=== PATIENT | female | born 1975 | race Caucasian/White ===

== ENCOUNTER → 2017-09-08 | Day surgery (SDC) | payer BC ==
[2017-09-03 10:50] VITALS: Ht 175.3 cm; Wt 119.5 kg
[~2017-09-08] VITALS: Ht 175.3 cm; Wt 119.5 kg
[~2017-09-08] MED LIST: EFF75 PO; HYG25 PO; LEVO200T6 PO; LIDOCAINE HCL 2% 2 ML VIAL (20MG/ML) ONE; LISI20TA3 PO; PRLSR20 PO; PROPOFOL IV EMULSION 10 MG/ML 20 ML VIAL IV ONE; SODIUM CHLORIDE 0.9% 500ML 500 ML IV ONE; ZNTT/150 PO
[2017-09-08 10:49] VITALS: TEMP 37
--- NOTE | 2017-09-08 11:21 | Endo History and Physical ---
History & Physical Date of Service: Sep 08, 2017. Chief Complaint: nausea and reflux Referring Physician: Melina Morales History of Present Illness reflux and regurgitation Past Surgical History Hx Cardiac Surgery: No Hx Internal Defibrillator: No Hx Pacemaker: No Hx Abdominal Surgery: No Hx Post-Op Nausea and Vomiting: No Hx Cancer Surgery: No Hx Thoracic Surgery: No Hx Orthopedic: No Hx Urinary Tract Surgery: No Family History None Social History Smoking Status: Current Every Day Smoker Hx Substance Use: No Hx Alcohol Use: No Allergies Coded Allergies: Sulfa Drugs (Verified Adverse Reaction, Unknown, NAUSEA, GASTRIC UPSET, ) Current Medications Reported Home Medications Medications Dose Route/Sig Max Daily Dose Days Date Category Effexor (Venlafaxine Hcl) 75 Mg Tab 3 Tab PO QAM 09/03/17 Reported Prinivil (Lisinopril) 20 Mg Tab 20 Mg PO QAM 09/03/17 Reported Chlorthalidone 25 Mg Tab 1 Tab PO QAM 09/03/17 Reported Levothyroxine Sodium 200 Mcg Tab 1 Tab PO QAM 90 09/03/17 Reported Prilosec (Omeprazole) 20 Mg Capcr 20 Mg PO BID 09/03/17 Reported Zantac (Ranitidine HCl) 150 Mg Tab 150 Mg PO BID 09/03/17 Reported Vital Signs Weight (Kilograms): 119.55 Height (Feet): 5 Height (Inches): 9 Date Time Temp Pulse Resp B/P (MAP) Pulse Ox O2 Delivery O2 Flow Rate FiO2 09/08/17 10:49 37 90 20 124/81 (95) 97 Room Air Physical Exam General Appearance: WD/WN Respiratory/Chest: Auscultation: breath sounds normal Cardiovascular: Heart Auscultation: RRR Abdomen: Inspection & Palpation: soft Liver: non-tender Assessment and Plan stable for EGD
--- NOTE | 2017-09-08 11:47 | Discharge Instructions ---
Endoscopy Patient Instructions Date / Procedure(s) Performed Sep 08, 2017. EGD Allergy Information Coded Allergies: Sulfa Drugs (Verified Adverse Reaction, Unknown, NAUSEA, GASTRIC UPSET, ) Discharge Date / Findings Sep 08, 2017. mild reflux esophagitis Provider Instructions Activity Restrictions - No exercising or heavy lifting for 24 hours. - Do not drink alcohol the day of the procedure. - Do not drive a car or operate machinery until the day after the procedure. - Do not make any important decisions or sign important papers in 24 hours after the procedure. Following Day: - Return to full activity which may include returning to work/school. Diet Start your diet with liquids and light foods (jello, soup, juice, toast). Then eat your usual diet if not nauseated. Treatment For Common After Affects For mild abdominal pain, bloating, or excessive gas: - Rest - Eat lightly - Lie on right side Follow-Up Information Follow-up with Melina Morales as scheduled Anesthesia Information What You Should Know You have had a procedure that required some medicine to reduce anxiety and discomfort. This treatment is called moderate sedation. After receiving the treatment, you may be sleepy, but you will be able to breathe on your own. The effects of the treatment may last for several hours. Follow these instructions along with Activity/Diet recommendations noted above: * Do NOT do anything where dizziness or clumsiness would be dangerous. * Rest quietly at home today, then you can be up and about tomorrow. * Have a responsible person stay with you the rest of today. * You may have had an I.V. today. If so, you may take the dressing off later today. Recommendations Call your doctor if: * Trouble breathing * Continuous vomiting for more than 24 hours * Temperature above 101 degrees * Severe abdominal pain or bloating * Pain not relieved by pain medicine ordered * There is increased drainage or redness from any incision * A large amount of rectal bleeding greater than 2-3 tablespoons. (If you had a polyp/s removed or have hemorrhoids, a small amount of blood - from the rectum is to be expected.) * You have any unanswered questions or concerns. IN THE EVENT OF A SERIOUS EMERGENCY, GO TO THE NEAREST EMERGENCY ROOM Your discharge instructions were prepared by provider Enoc Santos. Patient Instructions Signature Page Linda Dumont Patient (or Guardian) Signature/Date: I have read and understand the instructions given to me by my caregivers. Caregiver/RN/Doctor Signature/Date: The above-named patient and/or guardian has received patient instructions on this date. + Original Patient Signature Page (only) stays with chart. Please make copy for patient.
--- NOTE | 2017-09-08 11:52 | GI REPORT ---
Procedure Date: 09/08/2017 11:17 AM Procedure: Upper GI endoscopy Indications: Heartburn, Regurgitation Medicines: See the Anesthesia note for documentation of the administered medications Complications: No immediate complications. Estimated Blood Loss: Estimated blood loss: none. Procedure: Pre-Anesthesia Assessment: - Prior to the procedure, a History and Physical was performed, and patient medications, allergies and sensitivities were reviewed. The patient's tolerance of previous anesthesia was reviewed. - The risks and benefits of the procedure and the sedation options and risks were discussed with the patient. All questions were answered and informed consent was obtained. - Patient identification and proposed procedure were verified prior to the procedure by the physician and the nurse. The procedure was verified in the pre-procedure area. - Pre-procedure physical examination revealed no contraindications to sedation. - After reviewing the risks and benefits, the patient was deemed in satisfactory condition to undergo the procedure. After obtaining informed consent, the endoscope was passed under direct vision. Throughout the procedure, the patient's blood pressure, pulse, and oxygen saturations were monitored continuously. The scope was introduced through the mouth, and advanced to the third part of duodenum. The upper GI endoscopy was accomplished without difficulty. The patient tolerated the procedure well. Findings: LA Grade B (one or more mucosal breaks greater than 5 mm, not extending between the tops of two mucosal folds) esophagitis was found. The stomach was normal. The examined duodenum was normal. The cardia and gastric fundus were normal on retroflexion. Impression: - LA Grade B reflux esophagitis. - Normal stomach. - Normal examined duodenum. - No specimens collected. Recommendation: - Discharge patient to home. Enoc Santos M.D. Enoc Santos MD 09/08/2017 11:51:43 AM This report has been signed electronically. Note Initiated On: 09/08/2017 11:17 AM I attest to the content of the Intraoperative Record and orders documented therein, exceptions below
[2017-09-08 12:24] VITALS: BP 125/69; PULSE 70; O2SAT 100
--- NOTE | 2017-09-08 13:05 | Anesthesiology Progress Note ---
Anesthesia Post Op Note Date & Time Sep 08, 2017 at 13:04 Vital Signs Pain Intensity: 0 Vital Signs Past 12 Hours Date Time Temp Pulse Resp B/P (MAP) Pulse Ox O2 Delivery O2 Flow Rate FiO2 09/08/17 12:24 70 20 125/69 (87) 100 Room Air 09/08/17 12:07 76 20 101/67 (78) 98 Room Air 09/08/17 11:52 76 20 126/82 (97) 96 Room Air 09/08/17 10:49 37 90 20 124/81 (95) 97 Room Air Notes Mental Status: alert / awake / arousable, participated in evaluation Pt Amnestic to Procedure: Yes Nausea / Vomiting: adequately controlled Pain: adequately controlled Airway Patency, RR, SpO2: stable & adequate BP & HR: stable & adequate Hydration State: stable & adequate Anesthetic Complications: no major complications apparent
== END | disposition home or self-care (01) ==
LOC: C.GI 09:58
PROVIDERS: ATTEND Internal Medicine Gastroenterology
DX: K21.0 Gastro-esophageal reflux disease with esophagitis (principal); F17.200 Nicotine dependence, unspecified, uncomplicated; Z79.899 Other long term (current) drug therapy

== ENCOUNTER 2018-03-28 02:52 | Inpatient (IN) | payer BC ==
[2018-03-28] VITALS (12 sets, daily range): BP systolic 110–187; BP diastolic 72–118; PULSE 60–96; TEMP 36.6–37; O2SAT 93–98; Ht 175.3 cm; Wt 116.6 kg
[~2018-03-28] VITALS: Ht 175.3 cm; Wt 116.6 kg
[~2018-03-28 02:52] MED LIST changes: -LIDOCAINE HCL 2% 2 ML VIAL (20MG/ML) ONE; -PROPOFOL IV EMULSION 10 MG/ML 20 ML VIAL IV ONE; +RANI150T85 PO; -SODIUM CHLORIDE 0.9% 500ML 500 ML IV ONE; -ZNTT/150 PO
[2018-03-28] MEDS ORDERED: SIMV20TA2 PO (03:08)
[2018-03-28] MEDS ORDERED: ONDANSETRON INJ 2 MG/ML 2 ML VIAL IV STA (03:12)
[2018-03-28] MEDS ORDERED: MoRPHine SULFATE 4 MG/ML 1 ML CARP\\VIAL IV STA (03:12)
[2018-03-28 03:32] LABS: BASO % 0.4 %; BASO ABS # 0.03 K/uL (0-0.2); EOS % 2.8 %; EOS ABS # 0.23 K/uL (0-0.5); HEMATOCRIT 40.3 % (37-47); HEMOGLOBIN 13.4 g/dL (12.0-16.0); IG# 0.03 K/uL (0.00-0.02); LYMPH % 18.2 %; LYMPH ABS # 1.49 K/uL (1.2-3.4); MEAN CORPUSCULAR HEMOGLOBIN 27.9 pg (25-34); MEAN CORPUSCULAR HGB CONC 33.3 g/dl (32-36); MEAN PLATELET VOLUME 9.1 fL (7.4-10.4); MONO % 6.5 %; MONO ABS # 0.53 K/uL (0.11-0.59); NEUT % 71.7 %; NEUT ABS # 5.89 K/uL (1.4-6.5); PLATELET COUNT 293 K/uL (130-400); RED CELL DISTRIBUTION WIDTH CV 15.3 % (11.5-14.5); RED CELL DISTRIBUTION WIDTH SD 46.8 fL (36.4-46.3)
[2018-03-28 03:51] LABS: ALBUMIN 3.6 gm/dl (3.4-5.0); ALT/SGPT 21 U/L (12-78); AST/SGOT 15 U/L (15-37); BLOOD UREA NITROGEN 11 mg/dl (7-18); CALCIUM 8.5 mg/dl (8.5-10.1); CARBON DIOXIDE 22 mmol/L (21-32); GLUCOSE 148 mg/dl (70-99); LIPASE 150 U/L (73-393); POTASSIUM 3.5 mmol/L (3.5-5.1); SODIUM 139 mmol/L (136-145)
[2018-03-28 03:53] LABS: ALKALINE PHOSPHATASE 90 U/L (45-117); TOTAL PROTEIN 7.7 gm/dl (6.4-8.2)
[2018-03-28] MEDS ORDERED: NYSTATIN CR 15 GM TUBE EXT STA (03:54)
[2018-03-28] MEDS ORDERED: ONDANSETRON INJ 2 MG/ML 2 ML VIAL IV PRN ×2 (05:30→14:30)
[2018-03-28] MEDS ORDERED: HYDROmorphone INJ 2 MG/ML SYR/VIAL IV PRN (05:30)
[2018-03-28] MEDS ORDERED: HYDROmorphone INJ 0.5 MG/0.5 ML SYR IV PRN (05:30)
--- NOTE | 2018-03-28 05:30 | Surgery Consultation ---
Consultation Date of Consultation: Mar 28, 2018. Attending Physician: Reason for Consultation: cholelithiasis History of Present Illness Patient is a 42F who presented to the ED early this morning due to RUQ pain. She was seen this past fall by a surgeon for her gallstones who did not feel any intervention was warranted at that time. Reports she has felt warm but denies any fevers. Denies nausea/vomiting. She is moving her bowel and urinating without trouble. Last ate at 1900 yesterday. FHx positive for gallbladder disease (mother). Denies history of previous abdominal surgeries. PMH HTN, HLD, thyroid disease. She does have a trach plug in place due to vocal cord paralysis in the past. Denies problems with anesthesia in the past. Denies use of blood thinning or anticoagulant medications. WBC WNL. CT shows findings of cholelithiasis without evidence of acute cholecystitis. At this time she is still having moderate RUQ pain despite receiving 4mg morphine at 0327. Family History Gallbladder disease Hypertension Social History Smoking Status: Never Smoker Marital Status: Occupation Status: other Allergies Coded Allergies: Sulfa Drugs (Verified Adverse Reaction, Unknown, NAUSEA, GASTRIC UPSET, ) Home Medications Scheduled Levothyroxine Sodium (Levothyroxine Sodium), 1 TAB PO QAM Omeprazole (Prilosec), 20 MG PO BID Ranitidine (Zantac), 150 MG PO BID Simvastatin (Zocor), 20 MG PO QPM Venlafaxine Hcl (Effexor), 3 TAB PO QAM Review of Systems Constitutional: No fever, No chills Respiratory: No shortness of breath Cardiovascular: No chest pain Abdomen: + pain (RUQ), No nausea, No vomiting, No diarrhea, No constipation Genitourinary - Female: No dysuria Physical Exam Date Time Temp Pulse Resp B/P (MAP) Pulse Ox O2 Delivery O2 Flow Rate FiO2 03/28/18 04:30 89 18 179/91 95 Room Air 03/28/18 03:27 95 Room Air 03/28/18 02:56 36.6 68 18 162/102 96 Room Air General Appearance: WD/WN, no apparent distress Head: normocephalic, atraumatic ENT: hearing grossly normal Respiratory/Chest: no respiratory distress, no accessory muscle use Abdomen/GI: soft, no organomegaly, no pulsatile mass, + tenderness (RUQ TTP) Neurologic/Psych: alert, normal mood/affect, oriented x 3 Skin: normal color, warm/dry Laboratory Results Last 24 Hours Test 03/28/18 03:18 03/28/18 03:23 White Blood Count 8.20 K/uL Red Blood Count 4.80 M/uL Hemoglobin 13.4 g/dL Hematocrit 40.3 % Mean Corpuscular Volume 84.0 fL Mean Corpuscular Hemoglobin 27.9 pg Mean Corpuscular Hemoglobin Concent 33.3 g/dl Platelet Count 293 K/uL Mean Platelet Volume 9.1 fL Neutrophils (%) (Auto) 71.7 % Lymphocytes (%) (Auto) 18.2 % Monocytes (%) (Auto) 6.5 % Eosinophils (%) (Auto) 2.8 % Basophils (%) (Auto) 0.4 % Neutrophils # (Auto) 5.89 K/uL Lymphocytes # (Auto) 1.49 K/uL Monocytes # (Auto) 0.53 K/uL Eosinophils # (Auto) 0.23 K/uL Basophils # (Auto) 0.03 K/uL RDW Standard Deviation 46.8 fL RDW Coefficient of Variation 15.3 % Immature Granulocyte % (Auto) 0.4 % Immature Granulocyte # (Auto) 0.03 K/uL Sodium Level 139 mmol/L Potassium Level 3.5 mmol/L Chloride Level 107 mmol/L Carbon Dioxide Level 22 mmol/L Anion Gap 10.0 mmol/L Blood Urea Nitrogen 11 mg/dl Creatinine 1.00 mg/dl Est Creatinine Clear Calc Drug Dose 102.0 ml/min Estimated GFR () 81.6 Estimated GFR (Non- 70.4 BUN/Creatinine Ratio 11.3 Random Glucose 148 mg/dl Calcium Level 8.5 mg/dl Total Bilirubin 0.4 mg/dl Direct Bilirubin < 0.1 mg/dl Aspartate Amino Transf (AST/SGOT) 15 U/L Alanine Aminotransferase (ALT/SGPT) 21 U/L Alkaline Phosphatase 90 U/L Total Protein 7.7 gm/dl Albumin 3.6 gm/dl Lipase 150 U/L Bedside Troponin I < 0.030 ng/ml Assessment & Plan symptomatic cholelithiasis Abdomen soft, non-distended. No evidence of acute cholecystitis however patient is having continued pain and there are multiple gallstones seen on RUQ U /S. Would be reasonable to consider f/u as outpatient but patient is still having pain despite IV analgesics and hesitant for discharge. Will Admit patient to med/surg and plan for laparoscopic cholecystectomy, possible open with Dr. Khalil in the OR either today or tomorrow depending on scheduling. NPO for now, IV fluids, IV Mefoxin 2g Q6H, pain medication prn, anti-emetics prn, SCDs. Findings discussed with Dr. Khalil. Please contact with questions or concerns.
--- NOTE | 2018-03-28 05:51 | EMERGENCY ROOM VISIT NOTE ---
History First contact with patient: 03:03 Chief Complaint: ABDOMINAL PAIN Stated Complaint: PAIN IN RIGHT SIDE,CENTRAL ABDOMINAL PAIN Nursing Triage Summary: pt with R lower and mid upper abdominal pain. describes it as "intense stabbing type pain". denies N/V/D. voiding without problems. 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 hx gallstones. pain feels different than gall bladder attack in past. spouse with pt states she has a bacterial infection on her chest and neck that she was on antibiotics in the past for. History of Present Illness The patient is a 42 year old female who presents to the Emergency Room with complaints of nausea and epigastric right upper quadrant pain for the past 2 hours. Patient still has her gallbladder. She describes pain as aching, ranging in severity 7 out of 10. Nothing makes it better or worse. It does not radiate. Patient also comments of rash to her chest for the past week that is slightly itchy red and raised. Family doctor gave her antibiotics. It is gotten worse. Patient denies chest pain, dyspnea, fever, chills, cough, congestion, vomiting, diarrhea, back pain, urinary symptoms. Review of Systems An 10 system review of systems was completed with positives and pertinent negatives listed in the HPI. Past Medical/Surgical History Medical Problems: (1) Asthma (2) Symptomatic cholelithiasis (3) Thyroid disease (4) Ulcer Surgical Problems: (1) History of tonsillectomy Trach Family History Gallbladder disease Hypertension Social History Smoking Status: Never Smoker Smokeless Tobacco Use: No Alcohol Use: none Drug Use: none Marital Status: Occupation Status: other Current/Historical Medications Scheduled Levothyroxine Sodium (Levothyroxine Sodium), 1 TAB PO QAM Omeprazole (Prilosec), 20 MG PO BID Ranitidine (Zantac), 150 MG PO BID Simvastatin (Zocor), 20 MG PO QPM Venlafaxine Hcl (Effexor), 3 TAB PO QAM Physical Exam Vital Signs Date Time Temp Pulse Resp B/P (MAP) Pulse Ox O2 Delivery O2 Flow Rate FiO2 03/28/18 04:30 89 18 179/91 95 Room Air 03/28/18 04:15 63 03/28/18 03:27 95 Room Air 03/28/18 02:56 36.6 68 18 162/102 96 Room Air Physical Exam VITALS: Vitals are noted on the nurse's note and reviewed by myself. Vital signs stable. GENERAL: Pleasant female, in no acute distress, nondiaphoretic, well-developed well-nourished. SKIN: Chest and underneath her breasts with erythematous raised dermatitis with satellite regions most consistent with tinea corpus. The rest of the skin was without rashes, erythema, edema, or bruising. There is no tenting of the skin. Capillary reflex less than 2 seconds. HEAD: Normocephalic atraumatic. EARS: External auditory canals clear, tympanic membranes pearly tapia without erythema or effusion bilaterally. EYES: Pupils equal round and reactive to light and accommodation. Conjunctivae without injection, sclerae without icterus. Extraocular movements intact. NOSE: Patent, turbinates without inflammation or discharge. MOUTH: Mucous membranes moist. Pharynx without erythema or exudate. Uvula midline. Airway patent. Tongue does not deviate. NECK: Supple without nuchal rigidity. No lymphadenopathy. No thyromegaly. Cervical spine is nontender. No JVD. HEART: Regular rate and rhythm without murmurs gallops or rubs. LUNGS: Clear to auscultation bilaterally without wheezes, rales or rhonchi. No retractions or accessory muscle use. ABDOMEN: Positive bowel sounds x 4. Normal tympanic percussion. Soft, tender to palpation right upper quadrant, without masses or organomegaly. No guarding or rebound tenderness. No CVA tenderness MUSCULOSKELETAL: No muscle atrophy, erythema, noted. NEURO: Patient was alert and oriented to person place and time. Normal sensation to light and sharp touch. No focal neurological deficits. Medical Decision & Procedures Laboratory Results 03/28/18 03:18 Red Blood Count 4.80, Mean Corpuscular Volume 84.0, Mean Corpuscular Hemoglobin 27.9, Mean Corpuscular Hemoglobin Concent 33.3, Mean Platelet Volume 9.1, Neutrophils (%) (Auto) 71.7, Lymphocytes (%) (Auto) 18.2, Monocytes (%) (Auto) 6.5, Eosinophils (%) (Auto) 2.8, Basophils (%) (Auto) 0.4, Neutrophils # (Auto) 5.89, Lymphocytes # (Auto) 1.49, Monocytes # (Auto) 0.53, Eosinophils # (Auto) 0.23, Basophils # (Auto) 0.03 03/28/18 03:18 Test 03/28/18 03:18 03/28/18 03:23 White Blood Count 8.20 K/uL (4.8-10.8) Red Blood Count 4.80 M/uL (4.2-5.4) Hemoglobin 13.4 g/dL (12.0-16.0) Hematocrit 40.3 % (37-47) Mean Corpuscular Volume 84.0 fL (80-100) Mean Corpuscular Hemoglobin 27.9 pg (25-34) Mean Corpuscular Hemoglobin Concent 33.3 g/dl (32-36) Platelet Count 293 K/uL (130-400) Mean Platelet Volume 9.1 fL (7.4-10.4) Neutrophils (%) (Auto) 71.7 % Lymphocytes (%) (Auto) 18.2 % Monocytes (%) (Auto) 6.5 % Eosinophils (%) (Auto) 2.8 % Basophils (%) (Auto) 0.4 % Neutrophils # (Auto) 5.89 K/uL (1.4-6.5) Lymphocytes # (Auto) 1.49 K/uL (1.2-3.4) Monocytes # (Auto) 0.53 K/uL (0.11-0.59) Eosinophils # (Auto) 0.23 K/uL (0-0.5) Basophils # (Auto) 0.03 K/uL (0-0.2) RDW Standard Deviation 46.8 fL (36.4-46.3) RDW Coefficient of Variation 15.3 % (11.5-14.5) Immature Granulocyte % (Auto) 0.4 % Immature Granulocyte # (Auto) 0.03 K/uL (0.00-0.02) Anion Gap 10.0 mmol/L (3-11) Est Creatinine Clear Calc Drug Dose 102.0 ml/min Estimated GFR () 81.6 Estimated GFR (Non- 70.4 BUN/Creatinine Ratio 11.3 (10-20) Calcium Level 8.5 mg/dl (8.5-10.1) Total Bilirubin 0.4 mg/dl (0.2-1) Direct Bilirubin < 0.1 mg/dl (0-0.2) Aspartate Amino Transf (AST/SGOT) 15 U/L (15-37) Alanine Aminotransferase (ALT/SGPT) 21 U/L (12-78) Alkaline Phosphatase 90 U/L (45-117) Total Protein 7.7 gm/dl (6.4-8.2) Albumin 3.6 gm/dl (3.4-5.0) Lipase 150 U/L (73-393) Bedside Troponin I < 0.030 ng/ml (0-0.045) Medications Administered Medications (Trade) Dose Ordered Sig/Komal Route Start Time Stop Time Status Last Admin Dose Admin Morphine Sulfate (MoRPHine SULFATE INJ) 4 mg NOW STAT IV 03/28/18 03:12 03/28/18 03:13 DC 03/28/18 03:27 4 MG Ondansetron HCl (Zofran Inj) 4 mg NOW STAT IV 03/28/18 03:12 03/28/18 03:13 DC 03/28/18 03:26 4 MG Nystatin (Mycostatin Crm) 1 appln NOW STAT EXT 03/28/18 03:54 03/28/18 03:56 DC 03/28/18 04:31 1 APPLN ED Course Prior records/ancillary studies reviewed. Triage Nursing notes reviewed. Additional history obtained from family. The patient's history was concerning for abdominal pain. Differential diagnosis: Etiologies such as appendicitis, diverticulitis, PUD, biliary pathology, UTI, pancreatitis, obstruction, mesenteric ischemia, aortic pathology, infections, inflammatory bowel disease, renal colic, as well as others were entertained. Physical examination findings: As above. ER treatment provided: Morphine, Zofran, IV fluids On reassessment the patient felt better. Diagnostics interpreted by me: ECG: Normal sinus, normal intervals, no acute ST-T wave changes, rate of 60. Impression normal sinus rhythm interpreted by myself The labs revealed no leukocytosis. Stable H&H. Negative troponin. Hyperglycemia without DKA Imaging studies: US RUQ: Hepatic steatosis suggested. Hepatomegaly. Cholelithiasis. Gallbladder wall measures 2 mm. No pericholecystic fluid. Presence of sonographic Bedoya's sign not specifically reported. Common bile duct measures 4 mm No hydronephrosis. Radiologist: Kristian Vaughn M.D. Chest x-ray with no acute consolidation, pneumothorax free of my interpretation Consultation: A consultation was placed with the surgical PALuis Manuel. The case was discussed and diagnostics were reviewed. The patient was evaluated in the ER for further treatment. Exam and history seem consistent with cholelithiasis with possible cholecystitis. Patient will be evaluated by surgery. Patient still in moderate amount of pain. Patient was neurovascularly and neurologically intact. She is afebrile nontoxic. Patient was admitted to their service. Please see their dictation for further patient regarding the treatment plan. By the evaluation outlined above emergent etiologies such as appendicitis, diverticulitis, PUD, UTI, pancreatitis, obstruction, mesenteric ischemia, aortic pathology, inflammatory bowel disease, renal colic, as well as others were deemed relatively unlikely. The pt informed about the findings as listed above. All questions were answered and pleased with the treatment. Case reviewed with my attending The chart was completed utilizing [employer] Speech voice recognition software. Grammatical errors, random word insertions, pronoun errors, and incomplete sentences are an occassional consequence of this system due to software limitations, ambient noise, and hardware issues. Any formal questions or concerns about the content, text, or information contained within the body of this dictation should be directly addressed to the physician assistant reading teacher for clarification. Medical Decision As above Medication Reconcilliation Current Medication List: was personally reviewed by me Blood Pressure Screening Patient's blood pressure: Elevated blood pressure Blood pressure disposition: Elevated BP felt to be situational Impression Primary Impression: Symptomatic cholelithiasis Additional Impression: Candidiasis of breast Departure Information Dispostion Being Evaluated By Surgeon Condition GOOD Referrals Emiliano Zambrano M.D. (PCP) Patient Instructions My [facility] Problem Qualifiers
--- NOTE | 2018-03-28 06:46 | DIAGNOSTIC IMAGING REPORT ---
CHEST ONE VIEW PORTABLE CLINICAL HISTORY: Right-sided chest pain. COMPARISON STUDY: Chest radiograph July 15, 2016. FINDINGS: A tracheostomy tube is in place. No pneumothorax or pleural effusion is noted. There is no consolidation to suggest pneumonia. Cardiomediastinal silhouette is unremarkable. Pulmonary vascularity is normal. IMPRESSION: No acute cardiopulmonary findings. Electronically signed by: Brandyn Leal M.D. 03/28/2018 6:45 AM Dictated Date/Time: 03/28/2018 6:44 AM
--- NOTE | 2018-03-28 06:51 | DIAGNOSTIC IMAGING REPORT ---
GALLBLADDER-ABD LIMITED HISTORY: 42 years-old Female ruq pain, ? GB acute right upper quadrant abdominal pain COMPARISON: None available TECHNIQUE: Multiple real-time sonographic images of the abdominal right upper quadrant were obtained assessing grayscale appearance and color flow FINDINGS: Limited study secondary to patient body habitus. The imaged pancreas is unremarkable. Increased echogenicity with poor through transmission of the liver suggests possible hepatic steatosis. No focal hepatic mass lesions or intrahepatic biliary ductal dilation identified. Cholelithiasis and gallbladder sludge without gallbladder wall thickening or pericholecystic fluid. Sonographic Bedoya sign was not reported. Common bile duct is normal, 4 mm. Imaged right kidney is unremarkable without hydronephrosis. IMPRESSION: 1. Cholelithiasis and gallbladder sludge without sonographic evidence of acute cholecystitis. 2. No biliary ductal dilation. 3. Suggested hepatic steatosis. The above report was generated using voice recognition software. It may contain grammatical, syntax or spelling errors. Electronically signed by: Max Evangelista M.D. 03/28/2018 6:50 AM Dictated Date/Time: 03/28/2018 6:48 AM
[2018-03-28] MEDS: SODIUM CHLORIDE 0.9% 1000ML 1,000 ML IV SCH (07:44)
[2018-03-28] MEDS: CEFOXITIN IV 2,000 MG in DEXTROSE 5% 50ML 50 ML IV SCH ×4 (07:45→23:47)
[2018-03-28] MEDS ORDERED: ACETAMINOPHEN IV 1,000 MG in EMPTY BAG 0 ML IV SCH (08:00)
[2018-03-28] MEDS: LISINOPRIL 20 MG TAB PO SCH (08:23)
[2018-03-28] MEDS ORDERED: HydrALAZINE HCL 20 MG/ML VIAL IV. PRN (09:00)
[2018-03-28] MEDS ORDERED: BUPIVACAINE 0.5 % 5 MG/1 ML MPF 30ML VIAL ONE (13:00)
[2018-03-28] MEDS ORDERED: GLYCOPYRROLATE INJ 0.2 MG/ML VIAL ONE ×2 (13:01→14:10)
[2018-03-28] MEDS ORDERED: ONDANSETRON INJ 2 MG/ML 2 ML VIAL ONE (13:01)
[2018-03-28] MEDS ORDERED: LIDOCAINE HCL 2% 2 ML VIAL (20MG/ML) ONE (13:01)
[2018-03-28] MEDS ORDERED: NEOSTIGMINE METHYLSULFATE 5 MG/5 ML SYR ONE (13:01)
[2018-03-28] MEDS ORDERED: PROPOFOL IV EMULSION 10 MG/ML 20 ML VIAL ONE (13:01)
[2018-03-28] MEDS ORDERED: DEXAMETHASONE SOD INJ 4 MG/ML VIAL ONE (13:01)
[2018-03-28] MEDS ORDERED: FENTANYL CITRATE INJ 50 MCG/1 ML 2 ML VIAL ONE ×2 (13:02→14:21)
[2018-03-28] MEDS ORDERED: MIDAZOLAM HCL 1 MG/ML 2ML VIAL ONE (13:02)
[2018-03-28] MEDS ORDERED: OXYC-57 PO (13:42)
--- NOTE | 2018-03-28 13:44 | Discharge Instructions ---
Discharge Instructions Date of Service Mar 28, 2018. Admission Reason for Admission: Symptomatic Cholelithiasis Discharge Discharge Diagnosis / Problem: laparoscopic cholecystectomy Discharge Goals Goal(s): Decrease discomfort Activity Recommendations Activity Limitations: as noted below Lifting Limitations: no more than 10 pounds Shower/Bathe: no limitations Driving or Machine Use: resume 3 days after discharge . Instructions / Follow-Up Instructions / Follow-Up Dr. Khalil in 2 weeks, call [phone] to [address] Current Hospital Diet Patient's current hospital diet: Discharge Diet Recommended Diet: Regular Diet (low fat for a few days) Pending Studies Studies pending at discharge: no Medical Emergencies . Who to Call and When: Medical Emergencies: If at any time you feel your situation is an emergency, please call 911 immediately. . Non-Emergent Contact Non-Emergency issues call your: Surgeon Call Non-Emergent contact if: you have a fever, temperature is above 101.5, your pain is not controlled, wound has increased redness, you have any medication questions . "Provider Documentation" section prepared by Jeffy Dunbar. . [place] Drug Monitoring Program Search Results: no issues identified
[2018-03-28] MEDS ORDERED: EpHEDrine SULFATE 50MG/5ML SYR ONE (14:11)
[2018-03-28] MEDS ORDERED: PHENYLEPHRINE 100MCG/ML 5ML SYR ONE (14:11)
[2018-03-28] MEDS ORDERED: ATROPINE SULFATE 0.1 MG/ML 5ML SYR IV PRN (14:30)
[2018-03-28] MEDS ORDERED: FENTANYL CITRATE INJ 50 MCG/1 ML 2 ML VIAL IV PRN (14:30)
[2018-03-28] MEDS ORDERED: PROMETHAZINE HCL INJ 6.25 MG in SODIUM CHLORIDE 0.9% 50ML 50 ML IV PRN (14:30)
[2018-03-28] MEDS ORDERED: EpHEDrine SULFATE INJ 50 MG/ML AMP IV PRN (14:30)
--- NOTE | 2018-03-28 14:41 | [facility] Post Operative Brief Note ---
Immediate Operative Summary Operative Date Mar 28, 2018. Pre-Operative Diagnosis symptomatic cholelithiasis Post-Operative Diagnosis Acute cholecystitis Procedure(s) Performed Laparoscopic Cholecystectomy Surgeon Dr. Mik Khalil Mechanical Spreader Operator Surgeon(s) Dajuan Peters Estimated Blood Loss 6 cc Findings Consistent with Post-Op Diagnosis Window of safety obtained Specimens A: gallbladder and contents Drains None Anesthesia Type General Complication(s) none Disposition Accompanied Pt To Recover: no Disposition: Recovery Room / PACU
--- NOTE | 2018-03-28 14:45 | [facility] Operative Report ---
Operative Report Operative Date Mar 28, 2018. Pre-Operative Diagnosis symptomatic cholelithiasis Post-Operative Diagnosis Acute cholecystitis Procedure(s) Performed Laparoscopic cholecystectomy Surgeon Dr. Mik Khalil Office Nurse Practitioner Surgeon(s) Dajuan Peters Estimated Blood Loss 6 cc Findings Acute cholecystitis. Window of safety obtained, cystic duct and artery doubly clipped and divided, posterior branch of artery and divided. Good hemostasis. Specimens A: gallbladder and contents Drains None Anesthesia GETA Complication(s) None Disposition Recovery Room / PACU Indications 42-year-old female admitted with signs and symptoms of intractable biliary colic , plan for laparoscopic cholecystectomy with possible cholangiogram. The risks of the procedure were discussed, all questions were answered, and the patient agreed to proceed with surgery as planned. Description of Procedure The patient was properly identified, consented, and taken to the operating room where she was placed in the supine position. General endotracheal anesthesia was induced. SCDs and a safety belt were placed. Preoperative antibiotics were administered. The patient's abdomen was prepped and draped in the standard sterile fashion. A surgical timeout was performed and all parties were in agreement that this was the correct patient and procedure to be performed and we continued as planned. An incision was made superior and to the left of the umbilicus overlying the rectus muscle and the Veress needle was inserted. Saline drop test confirmed entry into the peritoneum. The abdomen was insufflated with carbon dioxide which the patient tolerated without incident. The abdomen was then entered using the Optiview technique and a 5 mm trocar. The laparoscope was inserted and no damage from initial trocar or Veress needle placement was noted, no gross abnormalities were noted within the 4 quadrants of the abdomen. An 11 mm port was placed in the subxiphoid position and two 5 mm ports were then placed in the right subcostal position. The patient was placed in reverse Trendelenburg position and rotated towards the left. The omentum was adhesed to the dome of the gallbladder which was taken down with electrocautery. There is evidence of acute cholecystitis. The dome of the gallbladder was retracted towards the left upper quadrant and the infundibulum was retracted toward the right lower quadrant revealing Calot's triangle. Peritoneal attachments were taken down with electrocautery and blunt dissection. The cystic duct and artery were circumferentially dissected. A window of safety was obtained showing the cystic duct entering the gallbladder with no aberrant structures noted. The cystic duct and artery were doubly clipped and divided. The posterior branch of the cystic artery was identified and clipped and divided. The gallbladder was then lifted off the gallbladder fossa with electrocautery. The gallbladder was placed in an Endo Catch bag and removed through the subxiphoid port site. The right upper quadrant was irrigated and hemostasis was found to be good. 5 mm trochars were removed under direct visualization and the abdomen was allowed to collapse. The subxiphoid port site fascia was closed with 0 Vicryl suture. The wound was irrigated, and the skin of all ports was closed with 4-0 Monocryl subcuticular sutures. Dermabond was placed over the wounds. The patient was extubated and tracheostomy replaced in the operating room and taken to the PACU where she recovered without apparent incident. All sponge, instrument and needle counts were correct at the conclusion of the procedure. The patient tolerated the procedure well. The physician's assistant community director was present and scrubbed for the entire case. He was essential in positioning the patient, prepping and draping, retraction and exposure, removal of the gallbladder, closure the incisions, placement of dressings. I attest to the content of the Intraoperative Record and any orders documented therein. Any exceptions are noted below.
--- NOTE | 2018-03-28 15:46 | Anesthesiology Progress Note ---
Anesthesia Post Op Note Date & Time Mar 28, 2018 at 15:44 Vital Signs Pain Intensity: 0 Vital Signs Past 12 Hours Date Time Temp Pulse Resp B/P (MAP) Pulse Ox O2 Delivery O2 Flow Rate FiO2 03/28/18 15:35 36.7 71 16 125/81 94 Trach Collar 4 29 03/28/18 15:25 78 19 118/80 94 Trach Collar 5 30 03/28/18 15:15 80 17 133/80 95 Trach Collar 10 50 03/28/18 15:05 84 21 132/75 97 Trach Collar 10 50 03/28/18 14:59 36.1 86 18 123/80 96 Trach Collar 10 50 03/28/18 13:00 37.2 68 20 126/80 (95) 94 Room Air 03/28/18 11:47 60 18 116/78 (91) 03/28/18 10:59 60 17 126/72 (90) 97 Room Air 03/28/18 07:30 Room Air 03/28/18 07:17 36.8 70 15 180/117 (138) 93 Room Air 03/28/18 06:39 165/107 (126) 03/28/18 06:26 37.0 96 18 187/118 Room Air 03/28/18 06:00 85 16 164/101 94 03/28/18 04:30 89 18 179/91 95 Room Air 03/28/18 04:15 63 Notes Mental Status: alert / awake / arousable, participated in evaluation Pt Amnestic to Procedure: Yes Nausea / Vomiting: adequately controlled Pain: adequately controlled Airway Patency, RR, SpO2: stable & adequate BP & HR: stable & adequate Hydration State: stable & adequate Anesthetic Complications: no major complications apparent Airway management note: Patient was sedated and breathing spontaneously. Her metal trach was removed and I attempted to place a 6.0 cuffed Shiley. This was unable to be placed due to granulation tissue around trach opening. A 5.0 cuffed ETT was placed easily and was used for the case. Her original trach was replaced at the end of the case.
--- NOTE | 2018-03-28 19:04 | Medical Consult ---
Consultation Date of Consultation: Mar 28, 2018. Attending Physician: Mik Khalil DO Reason for Consultation: Elevated blood pressure History of Present Illness 42 yo female with PMH HTN, Vit D def, iron deficiency anemia,present with RUQ pain. S/P laparoscopic cholecystectomy day# [address] [facility] hospitalist was consulted for elevated BP. BP prior to the procedure was elevated. Currently pt said that she feels fine. Pain is controlled. Denies any chest pain, palpitation, dizziness and SOB Past Medical/Surgical History Medical Problems: (1) Candidiasis of breast Status: Acute Family History Gallbladder disease Hypertension Social History Smoking Status: Current Every Day Smoker Smokeless Tobacco Use: No Drug Use: none Marital Status: Occupation Status: other Allergies Coded Allergies: Sulfa Drugs (Verified Adverse Reaction, Unknown, NAUSEA, GASTRIC UPSET, ) Current Inpatient Medications Current Inpatient Medications Medications (Trade) Dose Ordered Sig/Komal Route Start Time Stop Time Status Last Admin Dose Admin Sodium Chloride 1,000 ml @ 80 mls/hr [id number] IV 03/28/18 07:00 04/27/18 06:59 03/28/18 07:44 80 MLS/HR Ondansetron HCl (Zofran Inj) 4 mg Q6H PRN IV 03/28/18 05:30 04/27/18 05:29 03/28/18 16:26 4 MG Hydromorphone HCl (Dilaudid Inj) 0.5 mg Q3HWA PRN IV 03/28/18 05:30 04/11/18 05:29 03/28/18 08:16 0.5 MG Hydromorphone HCl (Dilaudid Inj) 1 mg Q3HWA PRN IV 03/28/18 05:30 04/11/18 05:29 Cefoxitin Sodium 2000 mg/Dextrose 60 ml @ 100 mls/hr Q6H IV 03/28/18 06:00 03/29/18 05:59 03/28/18 17:38 100 MLS/HR Lisinopril (Zestril Tab) 20 mg DAILY PO 03/28/18 08:00 04/27/18 07:59 03/28/18 08:23 20 MG Hydralazine HCl (HydrALAZINE INJ) 10 mg Q6 PRN IV. 03/28/18 09:00 04/27/18 08:59 Fentanyl Citrate (Fentanyl Inj) 50 mcg Q5M PRN IV 03/28/18 14:30 03/28/18 19:00 Ondansetron HCl (Zofran Inj) 4 mg ONE PRN IV 03/28/18 14:30 03/28/18 19:00 Promethazine HCl 6.25 mg/Sodium Chloride 50.25 ml @ 202 mls/hr ONE PRN IV 03/28/18 14:30 03/28/18 19:00 Ephedrine Sulfate (EpHEDrine SULFATE INJ) 5 mg Q5M PRN IV 03/28/18 14:30 03/28/18 19:00 Atropine Sulfate (Atropine Sulfate 0.1mg/ml Inj) 0.5 mg Q1M PRN IV 03/28/18 14:30 03/28/18 19:00 Oxycodone/ Acetaminophen (Percocet 5-325mg Tab) 2 tab Q4H PRN PO 03/28/18 14:45 04/11/18 14:44 Review of Systems Constitutional: No fever, No chills Eyes: No worsening of vision, No eye pain ENT: + problem reported (trach collar), No hearing loss Respiratory: No cough, No shortness of breath, No dyspnea on exertion Cardiovascular: No chest pain, No claudication Abdomen: + pain, No diarrhea Musculoskeletal: No calf pain Genitourinary - Female: No dysuria, No urinary frequency Neurologic: No weakness Psychiatric: No anhedonism Endocrine: + fatigue Hematologic / Lymphatic: No abnormal bleeding/bruising Integumentary: No rash, No itch Physical Exam Date Time Temp Pulse Resp B/P (MAP) Pulse Ox O2 Delivery O2 Flow Rate FiO2 03/28/18 18:30 37.0 95 18 141/87 (105) 98 Humidified Oxygen 8.0 28 03/28/18 17:20 37.0 68 18 138/86 (103) 95 Humidified Oxygen 8.0 28 03/28/18 16:54 36.8 65 16 134/88 (103) 95 Humidified Oxygen 8.0 28 03/28/18 16:29 Humidified Oxygen 28 Trach Collar 03/28/18 16:20 96 Humidified Oxygen 6.0 Trach Collar 03/28/18 16:18 36.6 71 18 133/83 (100) 96 Humidified Oxygen 8.0 28 Trach Collar 03/28/18 16:00 69 17 120/82 95 Trach Collar 4 29 03/28/18 15:45 72 17 122/67 94 Trach Collar 4 29 03/28/18 15:35 36.7 71 16 125/81 94 Trach Collar 4 29 03/28/18 15:25 78 19 118/80 94 Trach Collar 5 30 03/28/18 15:15 80 17 133/80 95 Trach Collar 10 50 03/28/18 15:05 84 21 132/75 97 Trach Collar 10 50 03/28/18 14:59 36.1 86 18 123/80 96 Trach Collar 10 50 03/28/18 13:00 37.2 68 20 126/80 (95) 94 Room Air 03/28/18 11:47 60 18 116/78 (91) 03/28/18 10:59 60 17 126/72 (90) 97 Room Air 03/28/18 07:30 Room Air 03/28/18 07:17 36.8 70 15 180/117 (138) 93 Room Air 03/28/18 06:39 165/107 (126) 03/28/18 06:26 37.0 96 18 187/118 Room Air 03/28/18 06:00 85 16 164/101 94 03/28/18 04:30 89 18 179/91 95 Room Air 03/28/18 04:15 63 03/28/18 03:27 95 Room Air 03/28/18 02:56 36.6 68 18 162/102 96 Room Air General Appearance: WD/WN, no apparent distress Head: normocephalic, atraumatic Eyes: PERRL, EOMI ENT: hearing grossly normal, + pertinent finding (trach collar) Neck: supple, no JVD Respiratory/Chest: normal breath sounds, no respiratory distress, no accessory muscle use Cardiovascular: regular rate, rhythm, no murmur Abdomen/GI: + tenderness Back: normal range of motion Extremities/Musculoskelatal: no calf tenderness Neurologic/Psych: no motor/sensory deficits, alert, oriented x 3 Skin: warm/dry, no rash Laboratory Results Last 24 Hours Test 03/28/18 03:18 03/28/18 03:23 03/28/18 13:10 White Blood Count 8.20 K/uL Red Blood Count 4.80 M/uL Hemoglobin 13.4 g/dL Hematocrit 40.3 % Mean Corpuscular Volume 84.0 fL Mean Corpuscular Hemoglobin 27.9 pg Mean Corpuscular Hemoglobin Concent 33.3 g/dl Platelet Count 293 K/uL Mean Platelet Volume 9.1 fL Neutrophils (%) (Auto) 71.7 % Lymphocytes (%) (Auto) 18.2 % Monocytes (%) (Auto) 6.5 % Eosinophils (%) (Auto) 2.8 % Basophils (%) (Auto) 0.4 % Neutrophils # (Auto) 5.89 K/uL Lymphocytes # (Auto) 1.49 K/uL Monocytes # (Auto) 0.53 K/uL Eosinophils # (Auto) 0.23 K/uL Basophils # (Auto) 0.03 K/uL RDW Standard Deviation 46.8 fL RDW Coefficient of Variation 15.3 % Immature Granulocyte % (Auto) 0.4 % Immature Granulocyte # (Auto) 0.03 K/uL Sodium Level 139 mmol/L Potassium Level 3.5 mmol/L Chloride Level 107 mmol/L Carbon Dioxide Level 22 mmol/L Anion Gap 10.0 mmol/L Blood Urea Nitrogen 11 mg/dl Creatinine 1.00 mg/dl Est Creatinine Clear Calc Drug Dose 102.0 ml/min Estimated GFR () 81.6 Estimated GFR (Non- 70.4 BUN/Creatinine Ratio 11.3 Random Glucose 148 mg/dl Calcium Level 8.5 mg/dl Total Bilirubin 0.4 mg/dl Direct Bilirubin < 0.1 mg/dl Aspartate Amino Transf (AST/SGOT) 15 U/L Alanine Aminotransferase (ALT/SGPT) 21 U/L Alkaline Phosphatase 90 U/L Total Protein 7.7 gm/dl Albumin 3.6 gm/dl Lipase 150 U/L Bedside Troponin I < 0.030 ng/ml Bedside Urine Test NEG Assessment & Plan RUQ pain Gall bladder U/S showed cholelithiasis and gallbladder sludge without sonographic evidence of acute cholecystitis. S/P Laparoscopic cholecystectomy day [address] Khalil Continue pain control as per surgery Tolerated clear liquid diet HTN BP was elevated prior to procedure BP now stable On chlorthalidone and lisinopril Resume Chlorthalidone med in am Continue monitor BP Tracheostomy Stable DVT px as per surgery
[2018-03-28] MEDS ORDERED: LSN20 PO (19:06)
[2018-03-28] MEDS ORDERED: HYG25 PO (19:06)
[2018-03-28] MEDS: OXYCODONE/ACETAMINOPHEN 5-325 TAB PO PRN (20:16)
[2018-03-28] MEDS ORDERED: NURSING VERBAL MED ORDER ONE (21:45)
[2018-03-29 03:43] VITALS: BP 112/69; PULSE 77; TEMP 36.8; O2SAT 92
[2018-03-29] MEDS: SODIUM CHLORIDE 0.9% 1000ML 1,000 ML IV SCH (05:40)
[2018-03-29] MEDS ORDERED: LEVOTHYROXINE 200 MCG TAB PO SCH (06:00)
--- NOTE | 2018-03-29 06:35 | Surgery Progress Note ---
Surgery Progress Note Date of Service March 29, 2018. Subjective Post OP Day: 1 + feeling well, + flatus, + pain controlled, + diet (Tolerating clears), No complaints, No bowel movement, No nausea, No vomiting Objective Vital Signs: Date Time Temp Pulse Resp B/P (MAP) Pulse Ox O2 Delivery O2 Flow Rate FiO2 03/29/18 03:43 36.8 77 16 112/69 (83) 92 Room Air 03/28/18 23:35 36.8 78 16 110/72 (85) 93 Room Air 03/28/18 19:18 36.9 92 18 149/98 (115) 94 Room Air 03/28/18 18:30 37.0 95 18 141/87 (105) 98 Humidified Oxygen 8.0 28 03/28/18 17:30 Humidified Oxygen 6.0 Trach Collar 03/28/18 17:20 37.0 68 18 138/86 (103) 95 Humidified Oxygen 8.0 28 03/28/18 16:54 36.8 65 16 134/88 (103) 95 Humidified Oxygen 8.0 28 03/28/18 16:29 Humidified Oxygen 28 Trach Collar 03/28/18 16:20 96 Humidified Oxygen 6.0 Trach Collar 03/28/18 16:18 36.6 71 18 133/83 (100) 96 Humidified Oxygen 8.0 28 Trach Collar 03/28/18 16:00 69 17 120/82 95 Trach Collar 4 29 03/28/18 15:45 72 17 122/67 94 Trach Collar 4 29 03/28/18 15:35 36.7 71 16 125/81 94 Trach Collar 4 29 03/28/18 15:25 78 19 118/80 94 Trach Collar 5 30 03/28/18 15:15 80 17 133/80 95 Trach Collar 10 50 03/28/18 15:05 84 21 132/75 97 Trach Collar 10 50 03/28/18 14:59 36.1 86 18 123/80 96 Trach Collar 10 50 03/28/18 13:00 37.2 68 20 126/80 (95) 94 Room Air 03/28/18 11:47 60 18 116/78 (91) 03/28/18 11:40 Room Air 03/28/18 10:59 60 17 126/72 (90) 97 Room Air 03/28/18 07:30 Room Air 03/28/18 07:17 36.8 70 15 180/117 (138) 93 Room Air 03/28/18 06:39 165/107 (126) General Appearance: WD/WN, no apparent distress Head: normocephalic, atraumatic Respiratory/Chest: no respiratory distress Abdomen: non distended, soft, no organomegaly, + tenderness (Incisional, mild) Incision(s): clean, dry, intact, no erythema, no drainage Laboratory Results: Results Past 24 Hours Test 03/28/18 13:10 Range/Units Bedside Urine Test NEG NEG Assessment & Plan POD #1 s/p lap dominic Doing well, pain controlled, abdomen soft, non-distended. Tolerating clears, No N/V. Urinating without issue. Full liquids this AM, ADAT. Probable d/c today if tolerating foods. Please contact with questions or concerns.
[2018-03-29 08:34] VITALS: BP 130/79; PULSE 72; TEMP 37; O2SAT 95
[2018-03-29] MEDS: LISINOPRIL 20 MG TAB PO SCH (08:51)
[2018-03-29] MEDS ORDERED: LISINOPRIL 20 MG TAB PO SCH (09:00)
[2018-03-29 10:58] VITALS: BP 130/79; PULSE 72; TEMP 37; O2SAT 95
[2018-03-29 11:29] VITALS: BP 112/75; PULSE 76; TEMP 37; O2SAT 94
[2018-03-29] MEDS: OXYCODONE/ACETAMINOPHEN 5-325 TAB PO PRN (12:26)
== END 2018-03-29 14:41 | disposition home or self-care (01) | DRG 419 ==
LOC: C.EDB 02:53 → C.MSN 05:33 → ENRESERV 05:52
PROVIDERS: ADMIT Surgery; ATTEND Surgery
PROC: 0FT44ZZ Resection of Gallbladder, Percutaneous Endoscopic Approach (ICD-10-PCS; principal; 2018-03-28 15:00)
DX: K80.00 Calculus of gallbladder with acute cholecystitis without obstruction (principal); B37.2 Candidiasis of skin and nail; J45.909 Unspecified asthma, uncomplicated; I10 Essential (primary) hypertension; E07.9 Disorder of thyroid, unspecified; Z79.899 Other long term (current) drug therapy; Z93.0 Tracheostomy status; Z88.2 Allergy status to sulfonamides; Z83.79 Family history of other diseases of the digestive system; Z82.49 Family history of ischemic heart disease and other diseases of the circulatory system